=== PATIENT | female | born 1970 | race Caucasian/White ===

== ENCOUNTER → 2016-08-06 | Day surgery (SDC) | payer BC ==
[~2016-08-06] MED LIST: Buffered Lidocaine 1% SYR 3ML* 3 ML/SYR SYRINGE INTRADERM ONE; Buffered Lidocaine 1% SYR 3ML* 3 ML/SYR SYRINGE ONE; Bupivacaine 0.25% W/EPI* 50 ML VIAL ONE; Bupivacaine 0.5% W/EPI SDV* 30 ML VIAL ONE; DiMENhydriNATE IV* 50 MG/ML VIAL IV PUSH PRN; Famotidine IV* 10 MG/ML 2 ML (20 mg) IV ONE; Famotidine IV* 10 MG/ML 2 ML (20 mg) ONE; Glycopyrrolate IV* 0.2 MG/ML 1 ML VIAL ONE; KETAMINE HCL* 50 MG/ML 10 ML VIAL ONE; Ketorolac INJ* 30 MG/ML 1 ML VIAL ONE; Lidocaine 1% INJ* 10 MG/ML 30 ML SDV ONE; Metoclopramide IV* 5 MG/ML 2 ML VIAL IV SLOW PU ONE; Metoclopramide IV* 5 MG/ML 2 ML VIAL ONE; Midazolam* 1 MG/ML 2 ML VIAL (2 MG) ONE; Neostigmine Methylsulfate* 2 MG/2 ML SYRINGE ONE; Ondansetron INJ* 2 MG/ML VIAL ONE; Rocuronium* 10 MG/ML VIAL ONE; ceFAZolin 2 GM PREMIX (*) 2 GM/50 ML BAG IVPB ONE; fentaNYL* 50 MCG/ML 2 ML VIAL (100 MCG VIAL) IV PRN; fentaNYL* 50 MCG/ML 2 ML VIAL (100 MCG VIAL) ONE
[2016-08-06 11:42] VITALS: BP 131/79
--- NOTE | 2016-08-06 20:04 | OP ---
DATE OF OPERATION: 08/06/16 - [facility] DATE OF : 66 SURGEON: Nazario Almendarez MD CLINICAL LIAISON: SAMANTHA Mckeon ANESTHESIOLOGIST: Dr. Ferro. ANESTHESIA: General anesthetic, local infiltration. PRE-OP DIAGNOSIS: Biliary colic. POST-OP DIAGNOSIS: Biliary colic. OPERATIVE PROCEDURE: Laparoscopic cholecystectomy. DESCRIPTION OF PROCEDURE: The patient was supine on the operative table. After adequate general anesthetic, compression stockings, Sarkis Hugger warmer and intravenous antibiotics, the abdomen was prepped with antiseptic and draped in a sterile fashion. Local infiltrative anesthesia was administered. Small right upper quadrant incision was created, 5 mm Visiport was placed. Insufflation was carried out with carbon dioxide. Additional cannulae, 5 mm supraumbilical and right anterior x-ray line and 12 mm subxiphoid was placed under direct vision through small stab wounds. There was a small hoa on the surface of the liver from the initial entry, probably related to the patient suddenly coughing as the cannula was going in but this stopped bleeding very quickly. There was maybe 20 mL of blood loss from that. The gallbladder was tented up and areolar tissue taken down at the cystic duct and cystic artery which were both readily clipped and divided. There was a posterior branch which was also clipped and divided. Gallbladder was taken off the liver bed without difficulty. Hemostasis was obtained using electrocautery. The gallbladder was removed through the subxiphoid port without difficulty. Pneumoperitoneum was allowed to escape after again confirming hemostasis and suctioning out free fluid. The skin incisions were closed with 5-0 Vicryl followed by Steri-Strips. She tolerated the procedure well and was brought to Recovery in good condition. Sponge, instruments correct. Gallbladder was the specimen. Estimated blood loss less than 30 mL. CC: Nazario Almendarez MD; Dr. Mai* [id number]/[facility] #: [id number] [facility]
== END | disposition home or self-care (01) ==
LOC: OR 07:47
PROVIDERS: ATTEND Surgery
PROC: 0FT44ZZ Resection of Gallbladder, Percutaneous Endoscopic Approach (ICD-10-PCS; principal; 2016-08-06 09:45)
DX: K80.10 Calculus of gallbladder with chronic cholecystitis without obstruction (principal); F17.210 Nicotine dependence, cigarettes, uncomplicated
CPT/HCPCS: 88304; J0690; J1885; J2250; J2405; J2765; J3010

== ENCOUNTER 2016-10-17 18:55 | Emergency (ER) | payer BC ==
--- NOTE | 2016-10-17 20:47 | UC ---
Head Injury HPI - HPI Summary HPI Summary: SLIPPED AND FELL BACKWARDS STRIKING THE POSTERIOR LEFT SIDE OF HER HEAD ABOUT 3 HRS [employer]. NPO LOC. C/O AGUERO, NECK PAIN AND BACK PAIN. NO N/V. NO VISUAL DISTURBANCES. - History Of Current Complaint Chief Complaint: UCHeadInjury Stated Complaint: HEAD INJURY Time Seen by Provider: 10/17/16 20:15 Hx Obtained From: Patient Hx Last Menstrual Period: one month ago Onset/Duration: Sudden Onset, Lasting Hours, Still Present Severity Currently: Moderate Severity Initially: Moderate Pain Intensity: 7 Pain Scale Used: 0-10 Numeric Character: Dull, Throbbing Aggravating Factor(s): Nothing Alleviating Factor(s): Nothing Associated Signs And Symptoms: Positive: Neck Pain. Negative: LOC (Time In Secs./Mins/Hrs), LOC Duration Unknown, Confusion, Memory Loss, Seizure, Epistaxis, Dental Malocclusion, Vomiting - Allergies/Home Medications Allergies/Adverse Reactions: Allergies Allergy/AdvReac Type Severity Reaction Status Date / Time Adhesive Tape Allergy Hives Verified 10/17/16 19:15 Doxycycline Allergy Hives Verified 10/17/16 19:15 Erythromycin Allergy Hives Verified 10/17/16 19:15 Varenicline [From Chantix] AdvReac Vomiting Verified 10/17/16 19:15 seasonal Allergy Eyes Uncoded 10/17/16 19:15 Itchy/Swollen/Red/Watery PMH/Surg Hx/FS Hx/Imm Hx Endocrine History Of: Reports: Diabetes - Type 2- ORAL MEDICATION FOR Denies: Thyroid Disease Cardiovascular History Of: Reports: Hypertension - ON MEDICATION FOR Denies: Pacemaker/ICD Respiratory History Of: Reports: Asthma - ROUTINE AND PRN INHALERS Cancer History Of: Denies: Breast Cancer - Surgical History Surgical History: Yes Surgery Procedure, Year, and Place: [facility] 1997[facility]. [place]GUINAL [place], [place] [facility] [place] [facility]-EMBOLIZATION- DR. [place] [facility] [place] - Family History Known Family History: Positive: Hypertension - Social History Alcohol Use: Rare Alcohol Amount: 1 drink Substance Use Type: None Smoking Status (MU): Light Every Day Tobacco Smoker Type: Cigarettes Amount Used/How Often: 1/2 PPD X 32 YEARS Length of Time of Smoking/Using Tobacco: 30 YRS Have You Smoked in the Last Year: Yes Review of Systems Skin: Negative Respiratory: Negative Cardiovascular: Negative Gastrointestinal: Negative Musculoskeletal: Arthralgia, Myalgia Neurological: Headache All Other Systems Reviewed And Are Negative: Yes Physical Exam Triage Information Reviewed: Yes Appearance: Well-Appearing, No Pain Distress, Well-Nourished Vital Signs: Initial Vital Signs Temp 98.4 F 10/17/16 19:09 Pulse 84 10/17/16 19:09 Resp 18 10/17/16 19:09 BP 143/96 10/17/16 19:09 Pulse Ox 98 10/17/16 19:09 Vital Signs Reviewed: Yes Eyes: Positive: Conjunctiva Clear ENT: Positive: Hearing grossly normal, TMs normal Neck: Positive: Supple, No Lymphadenopathy, Other: - TTP DIFFUSELY OVER POSTERIOR NECK Respiratory Exam: Normal Cardiovascular Exam: Normal Abdomen Description: Positive: Soft Musculoskeletal: Positive: No Edema Neurological: Positive: Alert, Other: - CN II-XII GROSSLY INTACT BILATERALLY. NEG PRONATOR DRIFT. FINGER TO NOSE INTACT BILATERALLY. HEEL TO CARTAGENA INTACT BILATERALLY. RAPID ALTERNATING MVMTS INTACT. 5/5 STRENGTH Psychological: Positive: Age Appropriate Behavior Skin: Negative: rashes Diagnostics - Radiology CERVICAL SPINE XRAY Xray Interpretation: No Acute Changes Radiology Interpretation Completed By: Radiologist Head Injury Course/Dx - Differential Dx/Diagnosis Provider Diagnoses: HEAD INJURY/CONTUSION Discharge - Discharge Plan Condition: Stable Disposition: HOME Prescriptions: Cyclobenzaprine TAB* [Flexeril TAB*] 10 mg PO BID PRN #30 tab PRN Reason: Pain Naproxen [Naproxen EC] 500 mg PO BID PRN #30 tab PRN Reason: Pain Patient Education Materials: Head Injury (ED), Contusion in Adults (ED) Referrals: Zoie Mai MD [Primary Care Provider] - If Needed Additional Instructions: GO TO THE ER WITHOUT FAIL IF YOU DEVELOP UNEQUAL PUPILS, VISUAL DISTURBANCE, GAIT INSTABILITY, SPEECH DIFFICULTY, NAUSEA/VOMITING, WORSENING HEADACHE, DIZZINESS, CONFUSION, WEAKNESS OR ANY OTHER CONCERNING SYMPTOMS.
[2016-10-17] MEDS ORDERED: Naproxen TAB* 250 MG PO ONE (20:51)
[2016-10-17] MEDS ORDERED: Cyclobenzaprine TAB* 10 MG PO ONE (20:51)
[2016-10-17 20:59] VITALS: BP 133/92
--- NOTE | 2016-10-17 21:01 | RAD ---
INDICATION: Trauma, neck pain. COMPARISON: Comparison is made with a prior x-ray study of the cervical spine from July 29, 2007. TECHNIQUE: 2 lateral views of the cervical spine were obtained. FINDINGS: C1-C7 are visualized. There is straightening of the cervical spine with loss of the normal cervical lordosis. No prevertebral soft tissue swelling or fracture is seen. There is mild disc space narrowing and uncinate process spurring present at the C4-C5 and C5-C6 levels consistent with mild degenerative disc disease. IMPRESSION: LIMITED STUDY, STRAIGHTENING OF THE CERVICAL SPINE, NO EVIDENCE FOR FRACTURE.
== END 2016-10-17 21:09 | disposition home or self-care (01) ==
LOC: UCEAST 18:55
DX: S00.93XA Contusion of unspecified part of head, initial encounter (principal); S09.90XA Unspecified injury of head, initial encounter; W19.XXXA Unspecified fall, initial encounter; Y93.9 Activity, unspecified; Y92.9 Unspecified place or not applicable; Z88.1 Allergy status to other antibiotic agents; E11.9 Type 2 diabetes mellitus without complications; Z79.84 Long term (current) use of oral hypoglycemic drugs; I10 Essential (primary) hypertension; J45.909 Unspecified asthma, uncomplicated; F17.210 Nicotine dependence, cigarettes, uncomplicated
CPT/HCPCS: 72020; 99212; A9270-GY; G0463

== ENCOUNTER 2017-05-30 19:46 | Emergency (ER) | payer BC ==
[2017-05-30 20:08] VITALS: BP 133/69
--- NOTE | 2017-05-30 22:26 | UC ---
Elbow Pain - HPI Summary HPI Summary: 2 WEEKS OF PAIN RIGHT ELBOW. NO DISCRETE INJURY OR TRAUMA. HAS BEEN WEARING A COUNTERFORCE BRACE WITH NO HELP. DOES DO REPETITIVE MOTION AT WORK. ICE NOT HELPING. - History of Current Complaint Chief Complaint: UCUpperExtremity Stated Complaint: ELBOW INJURY Time Seen by Provider: 05/30/17 20:55 Hx Obtained From: Patient Hx Last Menstrual Period: NOW Onset/Duration: Weeks, Still Present Severity Initially: Moderate Severity Currently: Moderate Pain Intensity: 3 Pain Scale Used: 0-10 Numeric Location Of Pain: Is Discrete @ - RIGHT ELBOW Character: Sharp Aggravating Factor(s): Movement Alleviating Factor(s): Rest Associated Signs And Symptoms: Positive: Negative - Allergies/Home Medications Allergies/Adverse Reactions: Allergies Allergy/AdvReac Type Severity Reaction Status Date / Time Adhesive Tape Allergy Hives Verified 05/30/17 20:08 Doxycycline Allergy Hives Verified 05/30/17 20:08 Erythromycin Allergy Hives Verified 05/30/17 20:08 Varenicline [From Chantix] AdvReac Vomiting Verified 05/30/17 20:08 seasonal Allergy Eyes Uncoded 10/17/16 19:15 Itchy/Swollen/Red/Watery Home Medications: Home Medications Med For Stopping Smoking* 1 tab PO BID 05/30/17 [History Confirmed 05/30/17] PMH/Surg Hx/FS Hx/Imm Hx Endocrine History: Diabetes, Dyslipidemia Cardiovascular History: Hypertension Respiratory History: Asthma - Surgical History Surgical History: Yes Surgery Procedure, Year, and Place: tugal ligation 1997, [facility] T/A 1971. [place], [place] [facility] [place] [facility] 06/2015-[place]BOLIZATION- [place] [facility] [place] MENISCUS REPA[place] - Family History Known Family History: Positive: Hypertension - Social History Alcohol Use: Rare Alcohol Amount: 1 drink Substance Use Type: None Smoking Status (MU): Current Every Day Smoker Type: Cigarettes Amount Used/How Often: 1/2 PPD Length of Time of Smoking/Using Tobacco: 30 YRS Have You Smoked in the Last Year: Yes Review of Systems Constitutional: Negative Skin: Negative Respiratory: Negative Cardiovascular: Negative Gastrointestinal: Negative Musculoskeletal: Arthralgia All Other Systems Reviewed And Are Negative: Yes Physical Exam Triage Information Reviewed: Yes Appearance: Well-Appearing, No Pain Distress, Well-Nourished Vital Signs: Initial Vital Signs Temp 97.2 F 05/30/17 20:04 Pulse 88 05/30/17 20:04 Resp 16 05/30/17 20:04 BP 133/69 05/30/17 20:04 Pulse Ox 99 05/30/17 20:04 Vital Signs Reviewed: Yes Eyes: Positive: Conjunctiva Clear ENT: Positive: Hearing grossly normal Neck: Positive: Supple Respiratory: Positive: No respiratory distress, No accessory muscle use Cardiovascular: Positive: Pulses Normal Abdomen Description: Positive: Soft Musculoskeletal: Positive: ROM Intact, No Edema, Other: - TTP RIGHT LATERAL EPICONDYLE. PAIN WITH WRIST EXTENSION AND SUPINATION AGAINST RESISTANCE. Neurological: Positive: Alert Psychological: Positive: Age Appropriate Behavior Skin: Negative: rashes Elbow Pain Course/Dx - Differential Dx/Diagnosis Provider Diagnoses: RIGHT LATERAL EPICONDYLITIS Discharge - Discharge Plan Condition: Stable Disposition: HOME Patient Education Materials: Tennis Elbow (ED) Referrals: Ayaka Kelly NP [Primary Care Provider] - If Needed Estrella Monzon MD [Medical Doctor] - 1 Week Additional Instructions: CONTINUE COUNTERFORCE BRACE AND ALEVE NEEDED. CALL [facility] TOMORROW FOR A FOLLOW-UP APPT.
== END 2017-05-30 21:15 | disposition home or self-care (01) ==
LOC: UCEAST 19:46
DX: M77.11 Lateral epicondylitis, right elbow (principal); E11.9 Type 2 diabetes mellitus without complications; E78.5 Hyperlipidemia, unspecified; I10 Essential (primary) hypertension; J45.909 Unspecified asthma, uncomplicated; Z88.1 Allergy status to other antibiotic agents; Z88.8 Allergy status to other drugs, medicaments and biological substances; Z91.048 Other nonmedicinal substance allergy status; F17.210 Nicotine dependence, cigarettes, uncomplicated
CPT/HCPCS: 99212; G0463

== ENCOUNTER 2018-02-17 07:03 | Day surgery (SDC) | payer BC ==
--- NOTE | 2018-02-08 16:08 | HP ---
CC: Dr. Zoie Mai * PREOPERATIVE HISTORY AND PHYSICAL: DATE OF ADMISSION: 02/17/18 DATE OF PREOPERATIVE HISTORY AND PHYSICAL EXAMINATION: 02/08/18. This patient is scheduled for same-day surgery admission by Dr. Almendarez, on , 02/17/18. ATTENDING SURGEON: Dr. Nazario Almendarez * (dictated by Noy Cain NP). CHIEF COMPLAINT: Left breast cancer. HISTORY OF PRESENT ILLNESS: The patient is a 47-year-old female, referred to Dr. Almendarez from Dr. Mai for a recent abnormality seen on her mammogram. She had an image-guided biopsy, which revealed invasive ductal carcinoma, hormone positive grade 2. She is not aware of any family members with a history of breast cancer or ovarian cancer. She has not been on any hormone therapy recently. She has not noticed any lumps or masses in the left breast. She has had no previous breast conditions. Dr. Almendarez reviewed the above findings with the patient and discussed the nature of breast cancer and surgical options and she has opted for needle localization wide excision and sentinel lymph node biopsy of the left breast cancer. Dr. Almendarez discussed the relevant risks and benefits of the procedure and today, I reviewed the expected postoperative care and recovery. The patient has had a chance to ask questions and stated that she understands the information and is satisfied with the answers given to her questions. She will sign surgical consent on the day of surgery. PAST MEDICAL HISTORY: Essential hypertension, type 2 diabetes, asthma, smoking , hyperlipidemia, GERD, and obesity. PAST SURGICAL HISTORY: section x4; first and second baby from [place]- [place] phenotype, 3rd baby from cord accident; tubal ligation; incisional hernia repair; tonsillectomy with adenoidectomy; uterine embolization ; and knee surgery. CURRENT MEDICATIONS: 1. Ferrex 150 mg p.o. daily. 2. QVAR RediHaler 1 inhalation b.i.d. 3. Bupropion 100 mg 1 tablet b.i.d. 4. Nasonex 50 mcg per actuation 2 sprays into each nostril daily. 5. Cyclobenzaprine 10 mg p.o. t.i.d. p.r.n. 6. ProAir inhaler 1 to 2 inhalations every 4 hours as needed. 7. Atorvastatin 40 mg p.o. daily. 8. Metformin 500 mg 2 tablets every 12 hours and she will hold her evening dose the night before the surgery as well as the morning of surgery. 9. Hydrochlorothiazide 25 mg p.o. daily. 10. Fish oil supplement. 11. Calcium plus D supplement. 12. Aspirin 81 mg p.o. daily, which she has not been taking recently. 13. Cetirizine 10 mg p.o. daily. ALLERGIES: ERYTHROMYCIN and DOXYCYCLINE, both cause hives. CHANTIX caused vomiting. FAMILY HISTORY: No known breast cancer or ovarian cancer. No known anesthesia complications, bleeding tendencies, or clotting disorders. SOCIAL HISTORY: She is and is employed as a real estate rental agent. She smokes a third of a pack of cigarettes per day. She denies the use of alcohol or other substances. REVIEW OF SYSTEMS: Constitutional: No fevers, chills, excessive fatigue or weight loss. Endocrine: She is a type 2 diabetic and check fingersticks every morning, typically running in the 90 to 115 range. No known thyroid disease. Hematologic: No easy bruising or bleeding. No blood transfusions. Breasts: As described in history of present illness. Respiratory: She is a smoker and she has a history of asthma. No recent flare ups. No dyspnea on exertion. No chronic cough. Cardiovascular: No anginal chest pain or palpitations. Gastrointestinal: No nausea, vomiting, diarrhea, GI bleeding or constipation, or change in bowel habits. Genitourinary: No dysuria. Musculoskeletal: No joint or back pain. Neurologic: No headache or blurred vision. No areas of focal weakness or numbness. General: No previous anesthesia complications. No history of deep vein thrombosis or pulmonary embolism. PHYSICAL EXAMINATION GENERAL SURVEY: The patient is a 47-year-old female, well developed, obese, in no acute distress. VITAL SIGNS: Height 64 inches, weight 202 pounds, body mass index 34.7. Blood pressure 126/82, pulse 84 and regular, respiratory rate 18, temperature 98 tympanic. HEENT: Benign. NECK: Supple. No cervical lymphadenopathy. No supraclavicular lymphadenopathy. LUNGS: Breath sounds bilaterally clear and equal. BREASTS: Symmetrical without skin or nipple changes. No palpable masses bilaterally. No axillary adenopathy. Biopsy site, left breast well healed. No infection. HEART: Regular rate and rhythm. No murmurs or rubs appreciated. ABDOMEN: Obese. Active bowel sounds. Soft, nondistended, nontender throughout. No obvious masses, organomegaly, or evidence of ventral hernia. PELVIC: Exam deferred. RECTAL: Exam deferred. EXTREMITIES: Warm without edema or skin ulceration. NEUROLOGIC: Alert and oriented x3. Steady gait. SKIN: Warm, dry, and intact. IMPRESSION: Left breast cancer. PLAN: Same-day surgery admission to Dr. Almendarez's service on , 02/17/18 , for needle localization wide excision of the left breast cancer and sentinel lymph node biopsy. SAIDA CAIN, FLORAL CLERK [id number]/[facility] #: [id number] LUIS M
[~2018-02-17 07:03] MED LIST changes: +Buffered Lidocaine 0.9% SYRIN* 5 ML/SYR SYRINGE INTRADERM ONE; -Buffered Lidocaine 1% SYR 3ML* 3 ML/SYR SYRINGE INTRADERM ONE; -Buffered Lidocaine 1% SYR 3ML* 3 ML/SYR SYRINGE ONE; -Bupivacaine 0.25% W/EPI* 50 ML VIAL ONE; -Bupivacaine 0.5% W/EPI SDV* 30 ML VIAL ONE; -DiMENhydriNATE IV* 50 MG/ML VIAL IV PUSH PRN; -Famotidine IV* 10 MG/ML 2 ML (20 mg) IV ONE; -Famotidine IV* 10 MG/ML 2 ML (20 mg) ONE; -Glycopyrrolate IV* 0.2 MG/ML 1 ML VIAL ONE; -KETAMINE HCL* 50 MG/ML 10 ML VIAL ONE; -Ketorolac INJ* 30 MG/ML 1 ML VIAL ONE; -Lidocaine 1% INJ* 10 MG/ML 30 ML SDV ONE; -Metoclopramide IV* 5 MG/ML 2 ML VIAL IV SLOW PU ONE; -Metoclopramide IV* 5 MG/ML 2 ML VIAL ONE; -Midazolam* 1 MG/ML 2 ML VIAL (2 MG) ONE; -Neostigmine Methylsulfate* 2 MG/2 ML SYRINGE ONE; -Ondansetron INJ* 2 MG/ML VIAL ONE; -Rocuronium* 10 MG/ML VIAL ONE; +Sodium Citrate/Citric Acid* 15 ML UDC PO ONE; -ceFAZolin 2 GM PREMIX (*) 2 GM/50 ML BAG IVPB ONE; -fentaNYL* 50 MCG/ML 2 ML VIAL (100 MCG VIAL) IV PRN; -fentaNYL* 50 MCG/ML 2 ML VIAL (100 MCG VIAL) ONE
[2018-02-17] MEDS ORDERED: Sodium Citrate/Citric Acid* 15 ML UDC ONE (07:22)
[2018-02-17] MEDS ORDERED: ceFAZolin 2 GM PREMIX (*) 2 GM/50 ML BAG IVPB ONE (07:22)
[2018-02-17] MEDS ORDERED: Lidocaine 2.5%/Prilocain 2.5%* 5 GM TUBE ONE (07:22)
[2018-02-17] MEDS ORDERED: Heparin VIAL(*) 5000 UNITS/ML VIAL (FIVE THOUSAND) ONE (07:58)
--- NOTE | 2018-02-17 09:53 | RAD ---
PROCEDURE: Mammographic needle/wire localization of the left breast PREOPERATIVE DIAGNOSIS: Breast cancer POSTOPERATIVE DIAGNOSIS: Same COMPARISONS: January 18, 2018 AGRICULTURAL ENGINEERING TECHNICIANS: Marcus Fisher MD ANESTHESIA: Local anesthesia with 1% lidocaine without epinephrine FLUOROSCOPY TIME: None CONTRAST: None PROCEDURAL NARRATIVE: The procedure was explained to the patient who indicated understanding. Written and verbal informed consent was obtained. An opportunity was given to ask and answer questions. A timeout was performed. The patient was prepped and draped in the usual sterile fashion. Using mammographic guidance, a needle/wire localization system was advanced to the target lesion in the left breast. Once position was confirmed, the needle was removed using pin pull technique. Post localization mammography was performed. The wound was dressed and the wire was secured. FINDINGS: Post localization mammography demonstrates the head of the hook wire in close proximity to the biopsy marker clip of the left outer breast. SPECIMENS: Pending COMPLICATIONS: None DISPOSITION: The patient tolerated the procedure well, without complications during or immediately following the procedure. The patient was sent to the nuclear medicine suite in good, stable condition. IMPRESSION: 1. TECHNICALLY SUCCESSFUL, UNCOMPLICATED, MAMMOGRAPHICALLY GUIDED NEEDLE-WIRE LOCALIZATION OF THE LEFT BREAST. 2. HISTOLOGY IS PENDING
--- NOTE | 2018-02-17 10:18 | RAD ---
HISTORY: Breast cancer. Lymphoscintigraphy of the breast for the purposes of sentinel node identification. COMPARISONS: Mammogram dated January 18, 2018, mammogram dated January 26, 2018 TECHNIQUE: Previous imaging was reviewed. The procedure was explained to the patient who indicated that she understood. Written and verbal informed consent was obtained, with an opportunity to ask and answer questions. The breast was marked. A timeout was performed. The patient was prepped and draped in the usual sterile fashion. Technetium 99m sulfur colloid was administered in a subdermal fashion in 4 divided aliquots in a 180 degree arc along the areolar margin of the left breast, centered on the position of the primary breast lesion. Cine and planar imaging was performed. The first appearing axillary node was identified with the overlying skin marked. DOSE: Technetium 99m sulfur colloid, 0.315 millicuries, injected at 9:40 AM on February 17, 2018 FINDINGS: Uptake is noted within a left axillary lymph node. The site of uptake is marked on the overlying skin. OTHER: None IMPRESSION: TECHNICALLY SUCCESSFUL, UNCOMPLICATED, LYMPHOSCINTIGRAPHY OF THE LEFT BREAST FOR THE PURPOSES OF SENTINEL NODE LOCALIZATION. CPT II Codes: 7025F
[2018-02-17] MEDS ORDERED: Lidocaine 1% MPF wEPI 200,000* 30 ML SDV ONE (10:58)
[2018-02-17] MEDS ORDERED: Bupivacaine 0.5% PF 10 ML VIAL INJ ONE (10:59)
[2018-02-17] MEDS ORDERED: Albuterol 2.5 MG/3 ML NEB.SOL* (0.083%) INH ONE (11:04)
[2018-02-17] MEDS ORDERED: Ondansetron INJ* 2 MG/ML VIAL IV PRN (11:09)
[2018-02-17] MEDS ORDERED: fentaNYL* 50 MCG/ML 2 ML VIAL (100 MCG VIAL) IV PRN (11:09)
[2018-02-17] MEDS ORDERED: Naloxone* 0.4 MG/ML 1 ML VIAL IV PRN (11:09)
[2018-02-17] MEDS ORDERED: Propofol* 10 MG/ML 20 ML BTL IV PUSH ONE (12:06)
[2018-02-17] MEDS ORDERED: fentaNYL* 50 MCG/ML 2 ML VIAL (100 MCG VIAL) ONE ×2 (12:06→14:25)
[2018-02-17] MEDS ORDERED: Lidocaine 2% PF * 5 ML VIAL ONE (12:07)
[2018-02-17] MEDS ORDERED: Dexamethasone IV* 4 MG/ML 1 ML (4 MG) ONE (12:23)
--- NOTE | 2018-02-17 13:43 | OP ---
Operative Report - Blank - Operative Report Date of Operation: 02/17/18 Note: Brief Operative Note Preop Dx: Left Breast cancer Postop Dx: same Procedure: wide excision Left breast cancer (after needle-localization); sentinel lymph node biopsy Anesthesia: GET Surgeon: Erickson Motorcycle Racer : SAMANTHA Rojas; MS Dominga Fluids: 1 liter RL EBL: <50 ml Specimen: Left breast wide excision; sentinel lymph node (1 and 2, plus add'l LN ) Drains: none Findings: dictated
[2018-02-17 14:36] VITALS: BP 114/81
--- NOTE | 2018-02-18 14:54 | OP ---
CC: Dr. Nazario Almendarez; Dr. Mai; [facility] * DATE OF OPERATION: 02/17/18 - [facility] DATE OF : 66 SURGEON: Nazario Almendarez MD PRIVATE CHEF: Dr. Rojas. ANESTHESIOLOGIST: Dr. Jones. ANESTHESIA: General anesthetic, local infiltration. PRE-OP DIAGNOSIS: Left breast cancer. POST-OP DIAGNOSIS: Left breast cancer. OPERATIVE PROCEDURE: Needle localizing wide local excision and sentinel node biopsy of left breast cancer. DESCRIPTION OF PROCEDURE: The patient was supine on the operating room table. After adequate general anesthetic, compression stockings, Sarkis Hugger warmer, and intravenous antibiotics, the left breast and axillary region were prepped with antiseptic, draped in sterile fashion. Local infiltrative anesthesia was administered. An elliptical incision was carried in the region of the guidewire. This was approximately 2 x 6 cm and then a piece of breast tissue, approximately 5 x 5 x 5 cm was removed. This was marked with a usual localizing sutures and sent fresh to Radiology, which confirmed excision of the lesion, it was then forwarded on to pathology. Hemostasis was obtained using electro-cautery and closure was accomplished using 3-0 and 5-0 Vicryl followed by Steri-Strips. In the left axilla, the sentinel node region was identified with the NeoProbe and then approximately 3 to 4 cm incision was created. Dissection was carried down to the axillary fat and a small cluster of lymph nodes was identified. This had 1 node that was about a centimeter and 2 nodes were about a 0.5 cm. One of the half centimeter nodes was very hard with counts of over 6000, another one was mildly hard with counts of about 250 and the larger node was actually not hard at all. There was minimal residual activity in the axillary basin. Closure was accomplished with 3-0 and 5-0 Vicryl followed by Steri-Strips. She tolerated the procedure well, was awakened and brought to recovery in good condition. No complications. No drains. Pathologic specimens as above. Sponge and instrument counts correct. Estimated blood loss 30 mL. [id number]/[facility] #: [id number] [facility]
== END 2018-02-17 14:57 | disposition home or self-care (01) ==
LOC: OR 07:03
PROVIDERS: ATTEND Surgery
DX: C50.912 Malignant neoplasm of unspecified site of left female breast (principal); I10 Essential (primary) hypertension; E11.9 Type 2 diabetes mellitus without complications; J45.909 Unspecified asthma, uncomplicated; E78.5 Hyperlipidemia, unspecified; K21.9 Gastro-esophageal reflux disease without esophagitis; E66.9 Obesity, unspecified; Z79.84 Long term (current) use of oral hypoglycemic drugs; Z72.0 Tobacco use
CPT/HCPCS: 78195; 88305; 88307; A9270-GY; A9541; J0690; J1100; J1644; J2001; J2704; J3010

== ENCOUNTER 2018-04-25 17:20 | Emergency (ER) | payer BC ==
[2018-04-25 18:13] VITALS: BP 141/86
--- NOTE | 2018-04-25 19:29 | UC ---
Respiratory Complaint HPI - HPI Summary HPI Summary: The patient is a 47-year-old female with the onset of severe nasal congestion postnasal drip and sinus pressure 2 days. She has asthma and has had to use her rescue inhaler. Denies any fever or chills. Currently receiving radiation therapy for breast cancer. - History of Current Complaint Chief Complaint: UCRespiratory Stated Complaint: SINUS CONGESTION, EAR ACHE, AND CHEST CONGESTION Time Seen by Provider: 04/25/18 19:16 Hx Obtained From: Patient Hx Last Menstrual Period: hand knitter Onset/Duration: Gradual Onset Timing: Constant Severity Initially: Mild Severity Currently: None Pain Intensity: 0 Pain Scale Used: 0-10 Numeric Character: Cough: Nonproductive Aggravating Factors: Nothing Alleviating Factors: Bronchodilator Associated Signs And Symptoms: Positive: Negative, Nasal Congestion, Sinus Discomfort - Allergies/Home Medications Allergies/Adverse Reactions: Allergies Allergy/AdvReac Type Severity Reaction Status Date / Time Adhesive Tape Allergy Hives Verified 04/25/18 18:13 doxycycline Allergy Hives Verified 04/25/18 18:13 erythromycin base Allergy Hives Verified 04/25/18 18:13 varenicline [From Chantix] Allergy Vomiting Verified 04/25/18 18:13 seasonal Allergy Eyes Uncoded 04/25/18 18:13 Itchy/Swollen/Red/Watery Home Medications: Home Medications Ferrous Sulfate, Dried [Slow Release Iron] 159 mg PO DAILY 04/25/18 [History Confirmed 04/25/18] PMH/Surg Hx/FS Hx/Imm Hx Previously Healthy: Yes Cardiovascular History: Hypertension Respiratory History: Asthma Cancer History: Breast Cancer - Surgical History Surgical History: Yes Surgery Procedure, Year, and Place: tugal ligation 1997, [facility]. T/A 1970. INGUINAL HERNIA, 1993, [facility] [place]. 4 C SECTIONS, [facility]. 06/2015-EMBOLIZATION- DR. JIMÉNEZ- [facility] [place]. LEFT MENISCUS REPAIR. cholecystectomy. Breast biopsy, lumpectomy, 3 lymph nodes 2018 - Family History Known Family History: Positive: Hypertension - Social History Alcohol Use: None Alcohol Amount: 2 DRINKS/ year Substance Use Type: None Smoking Status (MU): Light Every Day Tobacco Smoker Type: Cigarettes Amount Used/How Often: 1/2 PPD Length of Time of Smoking/Using Tobacco: 30 YRS Have You Smoked in the Last Year: Yes Household Exposure Type: Cigarettes Review of Systems Constitutional: Negative Skin: Negative Eyes: Negative ENT: Nasal Discharge, Sinus Congestion, Sinus Pain/Tenderness Respiratory: Negative Cardiovascular: Negative Gastrointestinal: Negative Genitourinary: Negative Motor: Negative Neurovascular: Negative Musculoskeletal: Negative Neurological: Negative Psychological: Negative All Other Systems Reviewed And Are Negative: Yes Physical Exam Triage Information Reviewed: Yes Appearance: Well-Appearing, No Pain Distress, Well-Nourished Vital Signs: Initial Vital Signs Temp 98.0 F 04/25/18 18:06 Pulse 87 04/25/18 18:06 Resp 16 04/25/18 18:06 BP 141/86 04/25/18 18:06 Pulse Ox 98 04/25/18 18:06 Vital Signs Reviewed: Yes Eyes: Positive: Conjunctiva Clear ENT: Positive: Hearing grossly normal, Nasal congestion, Nasal drainage, Sinus tenderness. Negative: Tonsillar swelling, Tonsillar exudate, Muffled voice, Hoarse voice Neck: Positive: Supple, Nontender, No Lymphadenopathy Respiratory: Positive: Lungs clear, Normal breath sounds, No respiratory distress, No accessory muscle use Cardiovascular: Positive: RRR, No Murmur Musculoskeletal: Positive: ROM Intact, No Edema Neurological: Positive: Alert Psychological Exam: Normal Skin Exam: Normal UC Diagnostic Evaluation - Laboratory O2 Sat by Pulse Oximetry: 98 - normal/not hypoxic Respiratory Course/Dx - Differential Dx/Diagnosis Provider Diagnoses: acute sinusitis Discharge - Sign-Out/Discharge Documenting (check all that apply): Patient Departure All imaging exams completed and their final reports reviewed: No Studies - Discharge Plan Condition: Stable Disposition: HOME Prescriptions: Amoxicillin/Clavulanate TAB* [Augmentin TAB 875*] 875 mg PO BID #14 tab Patient Education Materials: Sinusitis (ED) Referrals: Ayaka Kelly NP [Primary Care Provider] - 4 Days (if not improved) Additional Instructions: saline nasal spray twice daily - Billing Disposition and Condition Condition: STABLE Disposition: Home
== END 2018-04-25 19:25 | disposition home or self-care (01) ==
LOC: UCEAST 17:20
DX: J01.90 Acute sinusitis, unspecified (principal); Z88.1 Allergy status to other antibiotic agents; I10 Essential (primary) hypertension; Z85.3 Personal history of malignant neoplasm of breast; F17.210 Nicotine dependence, cigarettes, uncomplicated
CPT/HCPCS: 99202; G0463

== ENCOUNTER 2018-08-26 20:30 | Emergency (ER) | payer BC ==
[2018-08-26 20:38] VITALS: BP 144/97
--- NOTE | 2018-08-26 20:58 | UC ---
Lower Extremity/Ankle HPI - HPI Summary HPI Summary: 47 yo female presents with LEFT ankle pain since earlier today. She tells me that she was sitting at her desk at work and developed sudden inner left ankle pain with weight bearing only. She has not taken anything OTC for her discomfort. She denies injury, numbness, or tingling. She is currently on tamoxifen for BRCA and smokes daily. She has no calf pain, SOB, or recent travel. - History of Current Complaint Chief Complaint: UCLowerExtremity Stated Complaint: FOOT PAIN Time Seen by Provider: 08/26/18 20:58 Hx Obtained From: Patient Hx Last Menstrual Period: JANUARY 2018 Onset/Duration: Sudden Onset Severity Initially: Moderate Severity Currently: Moderate Pain Intensity: 5 Pain Scale Used: 0-10 Numeric - Allergies/Home Medications Allergies/Adverse Reactions: Allergies Allergy/AdvReac Type Severity Reaction Status Date / Time Adhesive Tape Allergy Hives Verified 08/26/18 20:38 doxycycline Allergy Hives Verified 08/26/18 20:38 erythromycin base Allergy Hives Verified 08/26/18 20:38 varenicline [From Chantix] Allergy Vomiting Verified 08/26/18 20:38 seasonal Allergy Eyes Uncoded 08/26/18 20:38 Itchy/Swollen/Red/Watery Home Medications: Home Medications Cholecalciferol TAB* [Vitamin D TAB*] 08/26/18 [History] Gabapentin CAP(*) [Neurontin 300 CAP(*)] 08/26/18 [History] Tamoxifen TAB* [Nolvadex 10 MG*] 08/26/18 [History Confirmed 08/26/18] PMH/Surg Hx/FS Hx/Imm Hx - Additional Past Medical History Additional PMH: BRCA Endocrine History: Diabetes, Dyslipidemia Cardiovascular History: Hypertension Respiratory History: Asthma - Surgical History Surgical History: Yes Surgery Procedure, Year, and Place: tugal ligation 1997, [facility]. T/A 1970. INGUINAL HERNIA, 1993, [facility] [place]. 4 C SECTIONS, [facility]. 06/2015-EMBOLIZATION- DR. JIMÉNEZ- [facility] [place]. MENISCUS REPAIR 2014. LEFT MENISCUS REPAIR. cholecystectomy. Breast biopsy, lumpectomy, 3 lymph nodes 2018 - Family History Known Family History: Positive: Hypertension - Social History Occupation: Employed Full-time Lives: With Family Alcohol Use: None Alcohol Amount: 2 DRINKS/ year Substance Use Type: None Smoking Status (MU): Current Every Day Smoker Type: Cigarettes Amount Used/How Often: 6 CIG/DAY Length of Time of Smoking/Using Tobacco: 30 YRS Have You Smoked in the Last Year: Yes Household Exposure Type: Cigarettes Review of Systems All Other Systems Reviewed And Are Negative: Yes Constitutional: Positive: Negative Skin: Positive: Negative Respiratory: Positive: Negative Cardiovascular: Positive: Negative Neurovascular: Positive: Negative Musculoskeletal: Positive: Other: - Left ankle pain Neurological: Positive: Negative Psychological: Positive: Negative Physical Exam - Summary Physical Exam Summary: GENERAL: NAD. WDWN. No pain distress. SKIN: No rashes, sores, lesions, or open wounds. CHEST: No accessory muscle use. Breathing comfortably and in no distress. CV: Pulses intact PT and DP. Cap refill <2seconds MSK: LEFT ANKLE: Medial aspect with very mild overlying erythema. Mild TTP at rest. FROM in all directions without pain. Strength 5/5. No edema or obvious bony deformities. Negative talar tilt. No increased laxity. Negative Wayland test. Negative tere's sign. LEFT CALF: NTTP. No palpable cord, warmth, edema, or erythema. NEURO: Alert. Sensations intact and symmetric B/L LEs PSYCH: Age appropriate behavior. Triage Information Reviewed: Yes Vital Signs: Initial Vital Signs Temp 96.6 F 08/26/18 20:34 Pulse 93 08/26/18 20:34 Resp 16 08/26/18 20:34 BP 144/97 08/26/18 20:34 Pulse Ox 99 08/26/18 20:34 Vital Signs Reviewed: Yes Lower Extremity Course/Dx - Course Course Of Treatment: I am unsure the cause of her ankle pain. She does have a few risk factors for DVT, but the area of her ankle pain would be unusual to have a clot. Discussed this with pt and she did not want to go to ED tonight for an ultrasound to r/o DVT. Explained risks of potential clot, including worsening condition, PE, and . Given this, will treat with RICE, tylenol, and CAM boot. Strongly advised that if symptoms worsen or do not improve to go to the ED for a further work up. Discussed warning signs of blood clot including swelling, increased pain, color change in toes or foot, calf cramping/ pain, or SOB. She voiced understanding. - Differential Dx/Diagnosis Provider Diagnosis: Left ankle pain Discharge - Sign-Out/Discharge Documenting (check all that apply): Patient Departure All imaging exams completed and their final reports reviewed: No Studies - Discharge Plan Condition: Stable Disposition: HOME Referrals: Ayaka Kelly NP [Primary Care Provider] - Additional Instructions: If you develop a fever, shortness of breath, chest pain, new or worsening symptoms - please call your PCP or go to the ED. Your blood pressure was high at todays visit. Please see your primary provider within 4 weeks for recheck and re-evaluation. 1) Rest, Ice, and elevate your ankle. Use the walking boot to help your symptoms. 2) If your symptoms do not improve or if you develop pain/cramping/swelling in your calf - please go to the ER - Billing Disposition and Condition Condition: STABLE Disposition: Home
== END 2018-08-26 21:28 | disposition home or self-care (01) ==
LOC: UCEAST 20:30
DX: M25.572 Pain in left ankle and joints of left foot (principal); F17.210 Nicotine dependence, cigarettes, uncomplicated; Z88.1 Allergy status to other antibiotic agents; Z88.8 Allergy status to other drugs, medicaments and biological substances; Z91.09 Other allergy status, other than to drugs and biological substances
CPT/HCPCS: 99212; G0463

== ENCOUNTER 2018-11-19 17:10 | Emergency (ER) | payer BC ==
[2018-11-19 17:27] VITALS: BP 142/76
--- NOTE | 2018-11-19 17:42 | UC ---
Hand/Wrist HPI - HPI Summary HPI Summary: 48-year-old female presents with complaints of left thumb pain. States approximately 12:30 this afternoon she was attempting to close the trunk of her car and she caused a hyperextension injury to the thumb. Complains of pain at the base of the thumb that worsens with any type of movement. Denies any numbness or tingling. - History Of Current Complaint Chief Complaint: UCUpperExtremity Stated Complaint: LEFT THUMB INJURY Time Seen by Provider: 11/19/18 17:31 Hx Obtained From: Patient Hx Last Menstrual Period: JANUARY 2018 Pain Intensity: 3 - Allergies/Home Medications Allergies/Adverse Reactions: Allergies Allergy/AdvReac Type Severity Reaction Status Date / Time Adhesive Tape Allergy Hives Verified 11/19/18 17:27 doxycycline Allergy Hives Verified 11/19/18 17:27 erythromycin base Allergy Hives Verified 11/19/18 17:27 varenicline [From Chantix] Allergy Vomiting Verified 11/19/18 17:27 seasonal Allergy Eyes Uncoded 11/19/18 17:27 Itchy/Swollen/Red/Watery PMH/Surg Hx/FS Hx/Imm Hx Endocrine History: Diabetes Respiratory History: Asthma Cancer History: Breast Cancer - Surgical History Surgical History: Yes Surgery Procedure, Year, and Place: tugal ligation 1997, [facility]. T/A 1970. [place]GUIN[place] [facility] [place], [facility]. 06/2015-EMBOLIZATION- DR. JIM[place]NEZ[place] [facility] [place]ENISCUS REPAIR [place]. LEFT MENISCUS REPAIR. cholecystectomy. Breast biopsy, lumpectomy, 3 lymph nodes 2017 - Family History Known Family History: Positive: Hypertension - Social History Occupation: Employed Full-time Lives: With Family Alcohol Use: None Alcohol Amount: 2 DRINKS/ year Substance Use Type: None Smoking Status (MU): Current Every Day Smoker Type: Cigarettes Amount Used/How Often: 6 CIG/DAY Length of Time of Smoking/Using Tobacco: 30 YRS Have You Smoked in the Last Year: Yes Household Exposure Type: Cigarettes Review of Systems All Other Systems Reviewed And Are Negative: Yes Constitutional: Positive: Negative Skin: Negative: Bruising Respiratory: Positive: Negative Cardiovascular: Positive: Negative Gastrointestinal: Positive: Negative Genitourinary: Positive: Negative Motor: Negative: Weakness Neurovascular: Negative: Decreased Sensation Musculoskeletal: Positive: Other: - See HPI Neurological: Positive: Negative Is Patient Immunocompromised?: No Physical Exam - Summary Physical Exam Summary: GENERAL APPEARANCE: Well developed, well nourished, alert and cooperative, and appears to be in no acute distress. CARDIAC: Normal S1 and S2. No S3, S4 or murmurs. Rhythm is regular. There is no peripheral edema, cyanosis or pallor. Extremities are warm and well perfused. Capillary refill is less than 2 seconds. Peripheral pulses intact. LUNGS: Clear to auscultation without rales, rhonchi, wheezing or diminished breath sounds. ABDOMEN: Positive bowel sounds. Soft, nondistended, nontender. No guarding or rebound. No masses or hepatosplenomegally. MUSKULOSKELETAL: Tenderness to the MCP of the left thumb without gross deformity , edema, ecchymosis, or erythema. ROM decreased due to pain. Circulation and sensation intact. SKIN: Skin normal color, texture and turgor with no lesions or eruptions. Triage Information Reviewed: Yes Vital Signs: Initial Vital Signs Temp 97.5 F 11/19/18 17:24 Pulse 88 11/19/18 17:24 Resp 16 11/19/18 17:24 BP 142/76 11/19/18 17:24 Pulse Ox 99 11/19/18 17:24 Vital Signs Reviewed: Yes Diagnostics - Radiology No standard instances Radiology Interpretation Completed By: ED Physician - No acute fracture or dislocation, Radiologist Summary of Radiographic Findings: Order Information: THUMB LEFT. Accession Number: [id number]. CPT: 68719. INDICATION: Left thumb injury. TECHNIQUE: 3 views of the left thumb were obtained. FINDINGS: There is dorsal lateral soft tissue swelling. The bones are normal alignment. No fracture is seen. Joint spaces appear maintained. IMPRESSION: NO EVIDENCE FOR FRACTURE. Hand/Wrist Course/Dx - Course Course Of Treatment: 48-year-old female presents with complaints of left thumb pain. States approximately 12:30 this afternoon she was attempting to close the trunk of her car and she caused a hyperextension injury to the thumb. Complains of pain at the base of the thumb that worsens with any type of movement. Denies any numbness or tingling. Afebrile. Vital signs stable. Exam remarkable for tenderness to the MCP of the left thumb without gross deformity, edema, ecchymosis, or erythema. ROM decreased due to pain. Circulation and sensation intact. X-ray showed _. Patient was placed in a thumb spica splint. Recommending conservative treatment for a left thumb sprain including over-the- counter analgesics and RICE. She is to follow-up with orthopedic surgery in 5- 7 days if symptoms do not improve. Anticipatory guidance and warning symptoms were reviewed with the patient. Verbalizes understanding and agrees with plan of care. - Differential Dx/Diagnosis Differential Diagnosis/HQI/PQRI: Contusion, Dislocation, Fracture, Sprain Provider Diagnosis: Left thumb sprain Discharge - Sign-Out/Discharge Documenting (check all that apply): Patient Departure All imaging exams completed and their final reports reviewed: Yes - Discharge Plan Condition: Stable Disposition: HOME Patient Education Materials: Skier's Thumb (ED) Referrals: Ayaka Kelly NP [Primary Care Provider] - Norberto Gutierrez MD [Medical Doctor] - 5 Days (IF no improvement in symptoms.) Additional Instructions: The x-ray performed in the clinic today showed no evidence of a fracture. I suspect that you have a sprain of the left thumb. Rest the hand as much as possible. Use the thumb spica splint provided to you until you are pain-free. You may remove to shower but should wear at all other times. Apply ice to the affected area for 15-20 minutes at least 4 times a day to help with the pain and swelling. Elevate the hand to help reduce swelling. Take acetaminophen (Tylenol) or ibuprofen (Advil, Motrin) according to directions as needed for pain. Follow up with orthopedic surgery in 5-7 days if symptoms do not improve. Seek immediate medical attention if you have severe pain not managed with pain medication, you are unable to walk or bear any weight, develop numbness or tingling in the hand or finger, or have any worsening of symptoms. - Billing Disposition and Condition Condition: STABLE Disposition: Home
== END 2018-11-19 18:19 | disposition home or self-care (01) ==
LOC: UCCORT 17:10
DX: S63.602A Unspecified sprain of left thumb, initial encounter (principal); E11.9 Type 2 diabetes mellitus without complications; C50.919 Malignant neoplasm of unspecified site of unspecified female breast; F17.210 Nicotine dependence, cigarettes, uncomplicated; Z88.8 Allergy status to other drugs, medicaments and biological substances; Z91.048 Other nonmedicinal substance allergy status; X50.9XXA Other and unspecified overexertion or strenuous movements or postures, initial encounter
CPT/HCPCS: 99212; G0463

== ENCOUNTER 2019-02-17 19:25 | Emergency (ER) | payer BC ==
[2019-02-17 20:10] VITALS: BP 153/82
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
== END 2019-02-17 21:15 | disposition home or self-care (01) ==
LOC: UCEAST 19:25
DX: H10.9 Unspecified conjunctivitis (principal); E11.9 Type 2 diabetes mellitus without complications; I10 Essential (primary) hypertension; D64.9 Anemia, unspecified; Z87.891 Personal history of nicotine dependence; Z85.3 Personal history of malignant neoplasm of breast
CPT/HCPCS: 99212; G0463